=== PATIENT | female | born 1970 | race African-American/Black ===

== ENCOUNTER 2021-05-30 09:09 | Emergency (ER) | payer SELFPAY ==
[~2021-05-30] VITALS: Ht 160 cm; Wt 60.0 kg
[2021-05-30] MEDS ORDERED: ACETAMINOPHEN 325MG TABLET PO STA (09:35)
[2021-05-30] MEDS ORDERED: ONDANSETRON HCL 4MG/2ML INJ IV STA (09:35)
[2021-05-30] MEDS ORDERED: SODIUM CHLORIDE 0.9% 1,000 ML IV ONE (09:45)
[2021-05-30 10:05] LABS: BASOPHILS % 0.4 % (0.0-2.0); HEMATOCRIT. 35.8 % (36.0-48.0); HEMOGLOBIN. 11.9 g/dL (12.0-16.0); LYMPHOCYTES % 12.8 % (20.0-50.0); MEAN CORPUSCULAR HEMOGLOBIN 30.9 pg (28.0-32.0); MEAN CORPUSCULAR VOLUME 92.8 fL (81.0-99.0); MEAN PLATELET VOLUME 8.4 fl (7.4-10.4); MONOCYTES % 7.7 % (2.0-8.0); NEUTROPHILS % 78.1 % (40.0-76.0); PLATELET 236 x1000/uL (130-400); RED BLOOD CELL COUNT 3.86 mill/uL (4.2-5.4); RED CELL DISTRIBUTION WIDTH 13.1 % (11.6-14.6)
[2021-05-30 10:09] LABS: CLARITY URINE CLOUDY (CLEAR); COLOR URINE YELLOW (YELLOW); KETONES URINE NEGATIVE (NEGATIVE); LEUKOCYTE ESTERASE URINE TRACE (NEGATIVE); NITRITE URINE NEGATIVE (NEGATIVE); OCCULT BLOOD URINE NEGATIVE (NEGATIVE); PH URINE 8.5 (4.5-8.0); PROTEIN URINE NEGATIVE (NEGATIVE); SPECIFIC GRAVITY URINE 1.022 (1.005-1.030)
[2021-05-30 10:12] LABS: CHLORIDE 109 mEq/L (98-107)
[2021-05-30] MEDS ORDERED: CEFTRIAXONE 1 G PREMIX 50 ML IV ONE (10:45)
[2021-05-30] MEDS ORDERED: ONDA4TAB5 MT (11:01)
[2021-05-30] MEDS ORDERED: DOXY100T2 MT (11:01)
[2021-05-30] MEDS ORDERED: METR500T MT (11:01)
[2021-05-30] MEDS ORDERED: CEPH500C2 MT (11:01)
[2021-05-30] MEDS ORDERED: IOHEXOL-300 100 ML BOTTLE ONE (11:27)
[2021-05-30] MEDS ORDERED: KETOROLAC 15MG/ML VIAL IV ONE (12:30)
[2021-05-30 12:59] VITALS: BP 94/62
== END 2021-05-30 13:03 | disposition home or self-care (01) ==
LOC: ER 09:09
DX: U07.1 COVID-19 (principal); A59.00 Urogenital trichomoniasis, unspecified
CPT/HCPCS: 36415; 74177; 80053; 81003; 81025; 83690; 85025; 96361; 96365; 96375; 99285; C9803; J0696; J1885; J2405; J7030; Q9967; U0003; U0005

== ENCOUNTER 2021-06-02 12:04 | Emergency (ER) | payer SELFPAY ==
[~2021-06-02 12:04] MED LIST: CEPH500C2 MT; DOXY100T2 MT; METR500T MT; ONDA4TAB5 MT
== END 2021-06-02 14:07 | disposition left against medical advice (07) ==
LOC: ER 12:04
DX: Z53.21 Procedure and treatment not carried out due to patient leaving prior to being seen by health care provider (principal)

== ENCOUNTER 2021-06-10 12:11 | Emergency (ER) | payer SELFPAY ==
[~2021-06-10] VITALS: Ht 162.6 cm; Wt 57.0 kg
[2021-06-10 12:37] VITALS: BP 105/52
== END 2021-06-10 15:50 | disposition home or self-care (01) ==
LOC: ER 12:11
DX: L25.9 Unspecified contact dermatitis, unspecified cause (principal)
CPT/HCPCS: 99281

== ENCOUNTER 2022-08-23 06:49 | Emergency (ER) | payer SELFPAY ==
[~2022-08-23] VITALS: Ht 162.6 cm; Wt 60.0 kg
[2022-08-23 06:54] VITALS: BP 152/78
== END 2022-08-23 12:04 | disposition left against medical advice (07) ==
LOC: ER 06:49
DX: M79.604 Pain in right leg (principal); Z53.21 Procedure and treatment not carried out due to patient leaving prior to being seen by health care provider
CPT/HCPCS: 99281